=== PATIENT | male | born 2005 | race Hispanic/Latino ===

== ENCOUNTER 2024-01-25 18:41 | Emergency (ER) | payer SELFPAY ==
[~2024-01-25 18:41] MED LIST: NO HOME MEDS; ZITHROMAX100 MG/5 M OR; ZOFRAN ODT4 MG OR
[2024-01-25 18:55] VITALS: BP 148/84
== END 2024-01-25 19:00 | disposition left against medical advice (07) | DRG 951 ==
LOC: ED 18:41
DX: Z53.21 Procedure and treatment not carried out due to patient leaving prior to being seen by health care provider (principal)